=== PATIENT | female | born 1955 | race Caucasian/White ===

== ENCOUNTER → 2016-09-11 | Outpatient (REF) | payer OTHER | LOC: M SFHCWAGY 16:49 | PROVIDERS: ATTEND Nurse Practitioner Family | DX: N94.9 Unspecified condition associated with female genital organs and menstrual cycle (principal) ==

== ENCOUNTER → 2016-09-14 | Outpatient (REF) | payer OTHER | LOC: M SFHCWAGY 15:19 | PROVIDERS: ATTEND Nurse Practitioner Family | DX: N94.89 Other specified conditions associated with female genital organs and menstrual cycle (principal) ==

== ENCOUNTER → 2016-10-01 | Outpatient (REF) | payer OTHER | LOC: M LAB REF 12:50 | PROVIDERS: ATTEND Nurse Practitioner Women's Health | DX: N94.0 Mittelschmerz (principal); N39.0 Urinary tract infection, site not specified ==

== ENCOUNTER → 2017-03-28 | Outpatient (REF) | payer OTHER | LOC: M SFHCLERA 10:59 | PROVIDERS: ATTEND Nurse Practitioner Family | DX: R30.0 Dysuria (principal) ==

== ENCOUNTER → 2017-04-02 | Outpatient (REF) | payer OTHER | LOC: M SMT 13:26 | PROVIDERS: ATTEND Nurse Practitioner Women's Health | DX: N39.0 Urinary tract infection, site not specified (principal) ==

== ENCOUNTER → 2017-04-07 | Outpatient (CLI) | payer BC, OTHER ==
--- NOTE | 2017-04-08 07:42 | REP ---
Clinical: Recurrent hydronephrosis. Technique: Real time gaxiola scale ultrasound examination using curved array transducer. Findings: The bilateral kidneys are relatively normal in contour, echogenicity and reniform shape without nephrolithiasis, cystic or renal mass lesion. Right kidney measures 9.5 x 4.8 x 4.3 cm with fullness/mild hydronephrosis suggested. Left kidney measures 11.4 x 4.6 x 5.7 cm without evidence for hydronephrosis. Bladder is unremarkable and without wall thickening, mass lesion. Bilateral ureteral jets noted. Prevoid bladder measures 12.8 x 10.1 x 9.1 cm (616 ml). Postvoid bladder measures 4.5 x 8.7 x 7.1 cm (146 ml). Postvoid residual volume equals 23%. Impression: 1. Cannot exclude mild right renal hydronephrosis and subtle atrophy. 2. Moderately increased postvoid residual volume suggested. Signed by Mega Vigil MD 04/08/2017 07:33 A
== END ==
LOC: M SMT 14:38
PROVIDERS: ATTEND Nurse Practitioner Women's Health
DX: N39.0 Urinary tract infection, site not specified (principal)

== ENCOUNTER → 2017-04-12 | Outpatient (REF) | payer OTHER ==
[2017-04-14 00:08] LABS: Candida species Negative (Negative); Gardnerella vaginalis Negative (Negative); Trichamonas vaginalis Negative (Negative)
== END ==
LOC: M SMT 13:16
PROVIDERS: ATTEND Specialist
DX: N39.0 Urinary tract infection, site not specified (principal); N89.8 Other specified noninflammatory disorders of vagina

== ENCOUNTER → 2017-05-26 | Outpatient (REF) | payer OTHER | LOC: M SFHCWAGY 14:09 | PROVIDERS: ATTEND Nurse Practitioner Family | DX: Z12.4 Encounter for screening for malignant neoplasm of cervix (principal); R87.610 Atypical squamous cells of undetermined significance on cytologic smear of cervix (ASC-US) ==

== ENCOUNTER → 2017-11-05 | Outpatient (REF) | payer OTHER ==
[2017-11-05 13:54] LABS: BACTERIA, URINE AUTO NEGATIVE (NEGATIVE); MUCUS, URINE SMALL (NEGATIVE); RBC, URINE AUTO 0 /HPF (0-3); SQUAMOUS EPITHELIAL CELL UR AU 0 /HPF (0-6); WBC, URINE AUTO 1 /HPF (0-3)
== END ==
LOC: M SMT 13:09
DX: N89.8 Other specified noninflammatory disorders of vagina (principal)
CPT/HCPCS: 81015

== ENCOUNTER → 2017-11-10 | Outpatient (CLI) | payer BC, OTHER | LOC: M SMT 13:56 | DX: N89.8 Other specified noninflammatory disorders of vagina (principal) ==

== ENCOUNTER → 2018-01-13 | Outpatient (REF) | payer OTHER ==
[2018-01-13 18:01] LABS: BACTERIA, URINE AUTO 1+ (NEGATIVE); RBC, URINE AUTO 4 /HPF (0-3); SQUAMOUS EPITHELIAL CELL UR AU 0 /HPF (0-6); WBC, URINE AUTO TNTC /HPF (0-3)
== END ==
LOC: M SMT 16:56
DX: R30.0 Dysuria (principal)

== ENCOUNTER → 2018-01-28 | Outpatient (REF) | payer OTHER | LOC: M SMT 17:13 | DX: N39.0 Urinary tract infection, site not specified (principal) ==

== ENCOUNTER → 2018-02-12 | Outpatient (REF) | payer OTHER ==
[2018-02-12 21:28] LABS: CHLAMYDIA DNA AMPLIFICATION NEGATIVE (NEGATIVE); GC DNA AMPLIFICATION NEGATIVE (NEGATIVE)
== END ==
LOC: M SFHCLERA 10:02
DX: R35.0 Frequency of micturition (principal)

== ENCOUNTER → 2019-01-25 | Outpatient (REF) | payer OTHER ==
[2019-01-25 13:50] LABS: APPEARANCE, URINE CLOUDY (CLEAR); BACTERIA, URINE AUTO 2+ (NEGATIVE); BILIRUBIN, URINE AUTO NEGATIVE (NEGATIVE); BLOOD, URINE BLOOD 1+ (NEGATIVE); COLOR, URINE YELLOW (YELLOW); GLUCOSE, URINE (UA) AUTO NEGATIVE (NEGATIVE); KETONE, URINE AUTO NEGATIVE (NEGATIVE); LEUKOCYTE ESTERASE, URINE AUTO 3+ (NEGATIVE); MUCUS, URINE SMALL (NEGATIVE); NITRITE, URINE AUTO NEGATIVE (NEGATIVE); PROTEIN, URINE AUTO NEGATIVE (NEGATIVE); RBC, URINE AUTO 12 /HPF (0-3); SPECIFIC GRAVITY URINE AUTO 1.017 (1.002-1.035); SQUAMOUS EPITHELIAL CELL UR AU 0 /HPF (0-6); UROBILINOGEN, URINE AUTO 0.2 mg/dL (0.0-2.0); WBC, URINE AUTO TNTC /HPF (0-3)
== END ==
LOC: M SMT 13:17
PROVIDERS: ATTEND Nurse Practitioner Women's Health
DX: R30.0 Dysuria (principal)

== ENCOUNTER → 2019-11-09 | Outpatient (REF) | payer OTHER | LOC: M LAB REF 17:14 | PROVIDERS: ATTEND Dermatology | DX: D49.2 Neoplasm of unspecified behavior of bone, soft tissue, and skin (principal) ==

== ENCOUNTER → 2020-02-12 | Outpatient (CLI) | payer BC, OTHER ==
[2020-02-12 16:44] LABS: HEMOGLOBIN 13.2 g/dl (12.0-15.5); MEAN CORPUSCULAR HEMOGLOBIN 31.3 pg (27.0-33.0); MEAN CORPUSCULAR VOLUME 94.8 fl (80.0-96.0); PLATELET COUNT, AUTOMATED 200 10^3/uL (150-450); RED BLOOD COUNT 4.22 10^6/uL (4.00-5.40); WHITE BLOOD COUNT 5.7 10^3/uL (4.0-10.0)
[2020-02-12 17:05] LABS: ALBUMIN 3.9 GM/DL (3.2-5.2); ALT/SGPT 23 U/L (12-78); BILIRUBIN,TOTAL 0.5 MG/DL (0.2-1.0); BLOOD UREA NITROGEN 14 MG/DL (7-18); C REACTIVE PROTEIN QUANTITATIV < 0.30 MG/DL (0.00-0.30); CALCIUM LEVEL 8.6 MG/DL (8.8-10.2); CARBON DIOXIDE LEVEL 32 MEQ/L (21-32); CHLORIDE LEVEL 104 MEQ/L (98-107); CREATININE FOR GFR 0.69 MG/DL (0.55-1.30); GLOMERULAR FILTRATION RATE > 60.0 (>45); GLUCOSE, FASTING 79 MG/DL (70-100); POTASSIUM SERUM 4.5 MEQ/L (3.5-5.1); RHEUMATOID FACTOR QUANT < 10.0 IU/ML (<15.0); SODIUM LEVEL 138 MEQ/L (136-145); TOTAL PROTEIN 6.8 GM/DL (6.4-8.2)
[2020-02-12 18:39] LABS: ERYTHROCYTE SEDIMENTATION RATE 3 mm/hr (0-30)
--- NOTE | 2020-02-15 10:08 | REPPI ---
RIGHT HAND: 4-VIEWS COMPARISON: None. REASON FOR EXAMINATION: Atraumatic pain. FINDINGS: 4-views of the right hand show no evidence of an acute fracture or destructive osseous lesion. Degenerative changes are seen involving the distal interphalangeal joint of the second digit where there is minimal marginal osteophytosis seen laterally. Mild, rather symmetric-appearing intradigital joint space narrowing is seen involving all digits. IMPRESSION: Chronic changes as described above. MTDD
== END ==
LOC: M PLALAB 13:51 → M PLAIMG 13:51
PROVIDERS: ATTEND Internal Medicine Rheumatology
DX: M06.4 Inflammatory polyarthropathy (principal)

== ENCOUNTER → 2020-03-07 | Outpatient (CLI) | payer BC ==
[2020-03-07 15:58] LABS: CHOLESTEROL RISK RATIO 1.888 (<5)
== END ==
LOC: M PLALAB 13:44
PROVIDERS: ATTEND Internal Medicine Cardiovascular Disease
DX: R53.83 Other fatigue (principal); R00.2 Palpitations; R94.31 Abnormal electrocardiogram [ECG] [EKG]; R06.02 Shortness of breath; Z86.79 Personal history of other diseases of the circulatory system

== ENCOUNTER → 2023-07-14 | Outpatient (CLI) | payer MEDICARE, BC, OTHER | LOC: M WUC 08:51 | PROVIDERS: ATTEND Physician Assistant | DX: S23.41XA Sprain of ribs, initial encounter (principal); X58.XXXA Exposure to other specified factors, initial encounter; Y92.9 Unspecified place or not applicable ==

== ENCOUNTER → 2024-03-29 | Outpatient (CLI) | payer MEDICARE, BC, OTHER ==
[2024-03-29 16:31] LABS: HEMATOCRIT 39.9 % (36.0-47.0); HEMOGLOBIN 13.4 g/dl (12.0-15.5); MEAN CORPUSCULAR HEMOGLOBIN 32.1 pg (27.0-33.0); MEAN CORPUSCULAR HGB CONC 33.6 g/dl (32.0-36.5); MEAN CORPUSCULAR VOLUME 95.5 fl (80.0-96.0); PLATELET COUNT, AUTOMATED 203 10^3/uL (150-450); RED BLOOD COUNT 4.18 10^6/uL (4.00-5.40)
[2024-03-29 16:39] LABS: ERYTHROCYTE SEDIMENTATION RATE 2 mm/hr (0-30)
[2024-03-29 16:41] LABS: C REACTIVE PROTEIN QUANTITATIV < 0.40 MG/DL (<1.0)
[2024-03-29 16:42] LABS: ALBUMIN 4.1 G/DL (3.2-5.2); ALKALINE PHOSPHATASE 38 U/L (46-116); ALT/SGPT 28 U/L (7.0-40); AST/SGOT 23 U/L (<34); BILIRUBIN,TOTAL 0.7 MG/DL (0.3-1.2); BLOOD UREA NITROGEN 13 MG/DL (9-23); CALCIUM LEVEL 9.3 MG/DL (8.3-10.6); CARBON DIOXIDE LEVEL 29 MMOL/L (20-31); CHLORIDE LEVEL 106 MMOL/L (98-107); CREATININE FOR GFR 0.63 MG/DL (0.55-1.30); GLOMERULAR FILTRATION RATE > 60.0 (>45); GLUCOSE, FASTING 92 MG/DL (74-106); POTASSIUM SERUM 4.4 MMOL/L (3.5-5.1); PTH INTACT 54.4 PG/ML (18.5-88.0); SODIUM LEVEL 138 MMOL/L (136-145); TOTAL PROTEIN 6.8 G/DL (5.7-8.2)
[2024-03-29 16:44] LABS: TOTAL 25(OH) VITAMIN D 71.6 NG/ML (20.0-100.0); VITAMIN B12 LEVEL 373 PG/ML (211-911)
[2024-03-29 16:45] LABS: THYROID STIMULATING HORMONE 2.169 uIU/ML (0.55-4.78)
[2024-03-29 16:47] LABS: FOLATE 12.5 NG/ML (>5.4)
[2024-03-31 14:22] LABS: EBV VIRAL CAPSID AG IGG > 750.00 U/mL (<18.00); EBV VIRAL CAPSID AG IGM < 36.00 U/mL (<36.00)
[2024-04-02 01:08] LABS: LYME TOTAL ANTIBODY CIA <= 0.90 Index (<=0.90)
[2024-04-05 07:33] LABS: WHITE BLOOD COUNT 5.4 10^3/uL (4.0-10.0)
== END ==
LOC: M WUC 14:03
PROVIDERS: ATTEND Physician Assistant
DX: D69.6 Thrombocytopenia, unspecified (principal); D51.9 Vitamin B12 deficiency anemia, unspecified; E83.51 Hypocalcemia; M13.0 Polyarthritis, unspecified; M79.10 Myalgia, unspecified site; R53.83 Other fatigue

== ENCOUNTER → 2024-03-31 | Outpatient (CLI) | payer MEDICARE, BC, OTHER | LOC: M WUC 10:11 | PROVIDERS: ATTEND Urology | DX: R91.8 Other nonspecific abnormal finding of lung field (principal); Y80 Physical medicine devices associated with adverse incidents ==

== ENCOUNTER → 2025-02-27 | Outpatient (CLI) | payer MEDICARE, BC | LOC: M WUC 11:11 | PROVIDERS: ATTEND Physician Assistant | DX: R19.4 Change in bowel habit (principal); E83.42 Hypomagnesemia ==